=== PATIENT | female | born 1975 | race Asian ===

== ENCOUNTER 2022-12-20 23:47 | Emergency (ER) | payer OTHER ==
[~2022-12-20] VITALS: Ht 162.6 cm; Wt 81.7 kg
[2022-12-21] MEDS ORDERED: METF500 PO (00:03)
[2022-12-21] MEDS ORDERED: Actos30 MG PO (00:03)
[2022-12-21 00:19] LABS: BASOPHILS ABSOLUTE AUTO 0.04 K/mm3 (0.00-0.23); BASOPHILS PERCENT AUTO 0 % (0-2); EOSINOPHILS ABSOLUTE AUTO 0.12 K/mm3 (0.00-0.68); EOSINOPHILS PERCENT AUTO 1 % (0-6); Hematocrit 36.6 % (33.0-51.0); Hemoglobin 12.4 g/dL (11.5-16.0); IMMATURE GRAN ABSOLUTE AUTO 0.03 K/mm3 (0.00-0.10); IMMATURE GRAN PERCENT AUTO 0 % (0-1); LYMPHOCYTES ABSOLUTE AUTO 4.41 K/mm3 (0.84-5.20); LYMPHOCYTES PERCENT AUTO 40 % (21-46); MONOCYTES ABSOLUTE AUTO 0.83 K/mm3 (0.16-1.47); MONOCYTES PERCENT AUTO 8 % (4-13); Mean Corpuscular HGB Conc 33.9 g/dL (31.5-36.5); Mean Corpuscular Volume 89 fL (80-100); Mean Platelet Volume 9.3 fL (9.1-12.4); NEUTROPHILS ABSOLUTE AUTO 5.68 K/mm3 (1.96-9.15); NEUTROPHILS PERCENT AUTO 51 % (41-73); Platelet Count 197 K/mm3 (150-400); RDW Coefficient Variation 13.9 % (11.7-14.2); RDW Standard Deviation 45.1 fL (35.1-46.3); Red Blood Cell Count 4.13 M/mm3 (3.80-5.20); White Blood Cell Count 11.11 K/mm3 (4.00-11.30)
[2022-12-21 00:33] LABS: Magnesium, Blood 1.8 mg/dL (1.6-2.4)
[2022-12-21 00:34] LABS: Bun/Creatinine Ratio 13.7 (12.0-20.0); Calcium, Blood 8.5 mg/dL (8.5-10.1); Creatinine, Blood 0.66 mg/dL (0.40-1.00); Potassium, Blood 3.1 mmol/L (3.5-5.5)
== END 2022-12-21 03:14 | disposition home or self-care (01) ==
LOC: ER 23:47
PROVIDERS: Student in an Organized Health Care Education/Training Program
DX: R06.02 Shortness of breath (principal); R00.0 Tachycardia, unspecified; T50.995A Adverse effect of other drugs, medicaments and biological substances, initial encounter; E11.9 Type 2 diabetes mellitus without complications; Z79.899 Other long term (current) drug therapy; Z79.84 Long term (current) use of oral hypoglycemic drugs
CPT/HCPCS: 80048; 83735; 84484; 85025; 85379; 93005; 93010; 96365; 96366; 96375; 99283-25; J2060; J3480; J7030